=== PATIENT | female | born 1985 | race Hispanic/Latino ===

== ENCOUNTER 2017-09-14 20:28 | Emergency (ER) | payer OTHER ==
[2017-09-14 20:52] VITALS: BP 143/86
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
== END 2017-09-14 23:29 | disposition home or self-care (01) ==
LOC: ED 20:28
DX: S13.4XXA Sprain of ligaments of cervical spine, initial encounter (principal); M32.9 Systemic lupus erythematosus, unspecified; M79.1 Myalgia; Z88.1 Allergy status to other antibiotic agents; Z88.2 Allergy status to sulfonamides; F17.200 Nicotine dependence, unspecified, uncomplicated; V89.2XXA Person injured in unspecified motor-vehicle accident, traffic, initial encounter; Y93.89 Activity, other specified; Y92.89 Other specified places as the place of occurrence of the external cause; Y99.8 Other external cause status
CPT/HCPCS: 99282

== ENCOUNTER 2017-12-04 00:17 | Emergency (ER) | payer SELFPAY ==
[2017-12-04 03:57] VITALS: BP 119/83
[2017-12-04] MEDS ORDERED: MOTRIN PO ONE (08:58)
--- NOTE | 2017-12-04 09:02 | Emergency Department Report ---
ED Animal Bite HPI - General Chief Complaint: Animal Bite Stated Complaint: DOG BITE Time Seen by Provider: 12/04/17 08:33 Source: patient Mode of arrival: Ambulatory Limitations: No Limitations - History of Present Illness Initial Comments: This is a 32-year-old female nontoxic, well nourished in appearance, no acute signs of distress presents to the ED with c/o of dog bite that occurred on left distal thigh region. Patient stated a known dog to her bite her last night. Patient stated the dog is up to date with vaccines including rabies. Patient stated animal control are notified. Patient denies any pus, drainage, fever, chills, nausea, vomiting, chest pain or shortness of breath. Patient denies any numbness or tingling. Patient states allergies to amoxicillin, Wellbutrin, Augmentin, Bactrim, pertussis vaccine. Past medical history includes asthma. MD Complaint: animal bite -: Last night Animal: dog Animal Control Notified: Yes Description: household pet Mechanism: bite Pain Description: burning, constant Severity scale (0 -10): 8 Context: unprovoked Associated Symptoms: erythema. denies: discharge from wound, bleeding, fever, chills, rash, loss of consciousness, cough, headache, diaphoresis, shortness of breath - Related Data Previous Rx's Medication Instructions Recorded Last Taken Type Ibuprofen [Motrin 600 MG tab] 600 mg PO Q8H PRN #15 tablet 09/14/17 Unknown Rx methOCARBAMOL [Robaxin TAB] 500 mg PO Q8H PRN #15 tablet 09/14/17 Unknown Rx Acetaminophen/Codeine [Tylenol 1 tab PO Q6H PRN #12 tab 12/04/17 Unknown Rx /Codeine # 3 tab] Ciprofloxacin HCl [Ciprofloxacin 500 mg PO Q12HR #14 tab 12/04/17 Unknown Rx TAB] Ibuprofen [Motrin] 600 mg PO Q8H PRN #30 tablet 12/04/17 Unknown Rx Allergies Allergy/AdvReac Type Severity Reaction Status Date / Time amoxicillin Allergy Unknown Verified 09/14/17 20:52 bupropion [From Wellbutrin] Allergy Unknown Verified 09/14/17 20:52 clavulanic acid Allergy Unknown Verified 09/14/17 20:52 [From Augmentin] Pertussis Vaccines Allergy Unknown Verified 09/14/17 20:52 sulfamethoxazole Allergy Unknown Verified 09/14/17 20:52 [From Bactrim] trimethoprim [From Bactrim] Allergy Unknown Verified 09/14/17 20:52 ED Review of Systems ROS: Stated complaint: DOG BITE Other details as noted in HPI Constitutional: denies: chills, fever Eyes: denies: eye pain, eye discharge, vision change ENT: denies: ear pain, throat pain Respiratory: denies: cough, shortness of breath, wheezing Cardiovascular: denies: chest pain, palpitations Endocrine: no symptoms reported Gastrointestinal: denies: abdominal pain, nausea, diarrhea Genitourinary: denies: urgency, dysuria, discharge Musculoskeletal: denies: back pain, joint swelling, arthralgia Skin: denies: rash, lesions Neurological: denies: headache, weakness, paresthesias Psychiatric: denies: anxiety, depression Hematological/Lymphatic: denies: easy bleeding, easy bruising ED Past Medical Hx - Past Medical History Previous Medical History?: Yes Hx Asthma: Yes Additional medical history: tumid lupus,fibromyalgia - Surgical History Past Surgical History?: Yes Additional Surgical History: tonsillectomy - Social History Smoking Status: Never Smoker Substance Use Type: Alcohol - Medications Home Medications: Home Medications Medication Instructions Recorded Confirmed Last Taken Type Ibuprofen [Motrin 600 MG tab] 600 mg PO Q8H PRN #15 tablet 09/14/17 Unknown Rx methOCARBAMOL [Robaxin TAB] 500 mg PO Q8H PRN #15 tablet 09/14/17 Unknown Rx Acetaminophen/Codeine [Tylenol 1 tab PO Q6H PRN #12 tab 12/04/17 Unknown Rx /Codeine # 3 tab] Ciprofloxacin HCl [Ciprofloxacin 500 mg PO Q12HR #14 tab 12/04/17 Unknown Rx TAB] Ibuprofen [Motrin] 600 mg PO Q8H PRN #30 tablet 12/04/17 Unknown Rx ED Physical Exam - General Limitations: No Limitations General appearance: alert, in no apparent distress - Head Head exam: Present: atraumatic, normocephalic - Eye Eye exam: Present: normal appearance Pupils: Present: normal accommodation - ENT ENT exam: Present: normal exam, mucous membranes moist - Neck Neck exam: Present: normal inspection, full ROM. Absent: tenderness, meningismus, lymphadenopathy - Respiratory Respiratory exam: Present: normal lung sounds bilaterally. Absent: respiratory distress, wheezes, rales, rhonchi, stridor, chest wall tenderness, accessory muscle use, decreased breath sounds, prolonged expiratory - Cardiovascular Cardiovascular Exam: Present: regular rate, normal rhythm, normal heart sounds. Absent: irregular rhythm, systolic murmur, diastolic murmur, rubs, gallop - GI/Abdominal GI/Abdominal exam: Present: soft, normal bowel sounds - Extremities Exam Extremities exam: Present: normal inspection, full ROM, tenderness, normal capillary refill. Absent: joint swelling - Expanded Lower Extremity Exam Left Hip exam: Present: normal inspection, full ROM Upper Leg exam: Present: normal inspection, full ROM, tenderness, ecchymosis, erythema (bite 0.5 cm bite mari superficial). Absent: swelling, abrasion, laceration, deformity, crepidus, dislocation Knee exam: Present: normal inspection, full ROM. Absent: tenderness, swelling Lower Leg exam: Present: normal inspection, full ROM. Absent: tenderness, swelling Ankle exam: Present: normal inspection, full ROM. Absent: tenderness, swelling Foot/Toe exam: Present: normal inspection, full ROM. Absent: tenderness, swelling Neuro vascular tendon exam: Present: no vascular compromise. Absent: pulse deficit, abnormal cap refill, motor deficit, sensory deficit, tendon deficit, extremity cold to touch, pallor, abnormal 2-point discrimination, decreased fine /light touch, foot drop, peroneal nerve deficit, significant pain with passive ROM of distal joint Gait: Positive: observed and normal - Back Exam Back exam: Present: normal inspection, full ROM - Neurological Exam Neurological exam: Present: alert, oriented X3, normal gait - Psychiatric Psychiatric exam: Present: normal affect, normal mood - Skin Skin exam: Present: warm, dry, intact, normal color. Absent: rash ED Course Vital Signs 12/04/17 03:47 Temperature 98.9 F Pulse Rate 85 Respiratory 18 Rate Blood Pressure 119/83 O2 Sat by Pulse 100 Oximetry - Reevaluation(s) Reevaluation #1: 12/04/17 09:03 Patient is speaking in full sentences with no signs of distress noted. Critical care attestation.: If time is entered above; I have spent that time in minutes in the direct care of this critically ill patient, excluding procedure time. ED Disposition Clinical Impression: Dog bite Qualifiers: Encounter type: initial encounter Qualified Code(s): W54.0XXA - Bitten by dog, initial encounter Disposition: DC-01 TO HOME OR SELFCARE Is pt being admited?: No Does the pt Need Aspirin: No Condition: Stable Instructions: Animal Bite (ED), Acetaminophen/Codeine (By mouth) Additional Instructions: Follow-up with a primary care doctor in 3-5 days or if symptoms worsen and continue return to emergency room as soon as possible. Do not operate any machinery while taking Tylenol with codeine due to possible drowsiness. Prescriptions: Acetaminophen/Codeine [Tylenol /Codeine # 3 tab] 1 tab PO Q6H PRN #12 tab PRN Reason: Pain Ciprofloxacin HCl [Ciprofloxacin TAB] 500 mg PO Q12HR #14 tab Ibuprofen [Motrin] 600 mg PO Q8H PRN #30 tablet PRN Reason: Pain Referrals: ROMAINE PANCHAL MD [Primary Care Provider] - 3-5 Days WADE MARK MD [Staff Physician] - 3-5 Days [facility] [place] [Outside] - 3-5 Days [facility] [Outside] - 3-5 Days Forms: Work/School Release Form(ED) ED Medical Decision Making - Medical Decision Making 32-year-old female that presents with a dog bite. Patient stable was examined by me. He has been clean with soap and water. Sterile dressing applied. Patient is discharged with ciprofloxacin. Patient stated that the dog is up-to- date vaccines including rabies so no vaccines provided in the ED. Patient was referred to observe the dog for at least 10 days and if any abnormal behavior to report to the ED for primary care doctor. Patient was instructed to Follow- up with a primary care doctor in 3-5 days or if symptoms worsen and continue return to emergency room as soon as possible. At time of discharge, the patient does not seem toxic or ill in appearance. No acute signs of distress noted. Patient agrees to discharge treatment plan of care. No further questions noted by the patient.
== END 2017-12-04 09:34 | disposition home or self-care (01) ==
LOC: ED 00:17
DX: S71.152A Open bite, left thigh, initial encounter (principal); J45.909 Unspecified asthma, uncomplicated; Z88.1 Allergy status to other antibiotic agents; Z88.8 Allergy status to other drugs, medicaments and biological substances; Z88.7 Allergy status to serum and vaccine; Z88.2 Allergy status to sulfonamides; W54.0XXA Bitten by dog, initial encounter; Y93.89 Activity, other specified; Y92.89 Other specified places as the place of occurrence of the external cause; Y99.8 Other external cause status
CPT/HCPCS: 99282